=== PATIENT | male | born 1970 | race Caucasian/White ===

== ENCOUNTER 2019-12-20 09:18 | Emergency (ER) | payer MEDICAID, SELFPAY ==
[2019-12-20 09:30] VITALS: BP 124/90; PULSE 98; RESP 18; TEMP 36.8; O2SAT 98; BMI 27.6
[2019-12-20 09:37] VITALS: BP 124/90; PULSE 98; RESP 18; TEMP 36.8; O2SAT 98; BMI 27.6
[2019-12-20 10:17] LABS: Basophils % 0.4 % (0.1-2.0); Eosinophils % 0.6 % (0.1-12.0); Hematocrit 48.1 % (42.0-52.0); Hemoglobin 16.6 g/dL (14.1-18.0); Lymphocytes # 2.2 K/mm3 (0.7-4.5); Lymphocytes % 39.2 % (10-50); Mean Corpuscular HGB Conc 34.5 g/dL (31.8-35.4); Mean Corpuscular Volume 95.6 fl (80-94); Mean Platelet Volume 7.8 fl (7.4-10.4); Monocytes # 0.4 K/mm3 (0.1-1.0); Neutrophils # 2.9 K/mm3 (1.8-7.8); Neutrophils % 52.8 % (37.0-80.0); Platelet Count 226 K/mm3 (142-424); Red Blood Count 5.04 M/mm3 (4.60-6.20); Red Cell Distribution Width 14.7 % (11.5-17.5); White Blood Count 5.6 K/mm3 (4.8-10.8)
[2019-12-20 10:20] LABS: Chloride 101 mmol/L (98-107); Potassium 4.1 mmoL/L (3.5-5.1); Sodium 141 mmol/L (136-145)
[2019-12-20 10:22] LABS: Alanine Aminotransferase 25 U/L (12-78); Amylase 48 U/L (30-110); Aspartate Amino Transferase 41 U/L (17-59); Blood Urea Nitrogen 17 mg/dl (9-20); Creatinine Clearance Estimated 126 mL/min (50-200); Estimated Glomerular Filt Rate 80 ml/min (>60); GFR (African American) 97 ML/MIN (>60)
[2019-12-20 10:23] LABS: Albumin Level 4.3 g/dl (3.5-5.0); Albumin/Globulin Ratio 1.3 (1.1-1.8); Alkaline Phosphatase 102 U/L (38-126); Anion Gap 14.1 mEq/L (5-15); Bilirubin,Total 0.8 mg/dl (0.2-1.3); Calcium 8.7 mg/dl (8.4-10.2); Carbon Dioxide 30 mmol/L (22.0-30.0); Globulin 3.3 g/dL (1.3-3.2); Glucose 112 mg/dl (74-100); Lipase 158 U/L (23-300); Total Protein,Serum 7.6 g/dl (6.3-8.2)
--- NOTE | 2019-12-20 10:33 | HMH.EDUTC ---
[facility] [place] Impression: Gastroenteritis Disposition: Home, Self-Care Condition on Discharge: Good Instructions: DI for Viral Gastroenteritis -- Adult Additional Instructions: Drink plenty of fluids. Take tylenol or ibuprofen for pain or fever. Take the medications as directed. Follow up with your regular doctor. GO TO THE ER FOR ANY WORSENING SYMPTOMS Prescriptions: Ondansetron [Zofran 4mg ODT] 4 mg PO Q8HP PRN #20 tab.rapdis PRN Reason: Nausea Transmission Status: Received by [facility] Referrals: Jasmin Dominguez [Primary Care Provider] - Time of Disposition: 11:03 Medical Decision Making - Medical Records Medical records reviewed: No: I reviewed the patient's medical records. - Tommy Inquiry Pt receiving controlled substance: No Vital Signs: 12/20/19 09:30 12/20/19 09:37 12/20/19 11:51 Temperature 98.3 F 98.3 F 98.3 F Temperature Source Oral Oral Oral Pulse Rate 98 H Pulse Rate [Left Radial] 98 H 98 H Respiratory Rate 18 18 18 Blood Pressure 124/90 Blood Pressure [Left Arm] 124/90 124/90 Blood Pressure Mean [Left Arm] 101 101 Blood Pressure Source Automatic Cuff Blood Pressure Source [Left Arm] Automatic Cuff Automatic Cuff Blood Pressure Position Sitting Blood Pressure Position [Left Arm] Sitting Sitting 02 Sat by Pulse Oximetry 98 98 Oxygen Delivery Method Room Air Room Air Room Air - Lab Data Lab results reviewed: Yes: I reviewed the patient's lab results. Lab Results 12/20/19 10:03: WBC 5.6, RBC 5.04, Hgb 16.6, Hct 48.1, MCV 95.6 H, MCH 33.0 H, MCHC 34.5, RDW 14.7, Plt Count 226, MPV 7.8, Neut % (Auto) 52.8, Lymph % (Auto) 39.2, [place] % (Auto) 7.0, Eos % (Auto) 0.6, Baso % (Auto) 0.4, Neut # (Auto) 2.9, Lymph # (Auto) 2.2, [place] # (Auto) 0.4, Eos # (Auto) 0.0, Baso # (Auto) 0.0 12/20/19 10:03: Sodium 141, Potassium 4.1, Chloride 101, Carbon Dioxide 30, Anion Gap 14.1, BUN 17, Creatinine 1.00, Estimated Creat Clear 126, Estimated GFR 80, Est GFR ( Amer) 97, Glucose 112 H, Calcium 8.7, Total Bilirubin 0.8, AST 41, ALT 25, Alkaline Phosphatase 102, Total Protein 7.6, Albumin 4.3, Globulin 3.3 H, Albumin/Globulin Ratio 1.3, Amylase 48, Lipase 158 Result diagrams: 12/20/19 10:03 12/20/19 10:03 Orders (Tests/Meds): ED MEDICATIONS Discontinued Medications Generic Name Dose Route Start Last Admin Trade Name Freq PRN Reason Stop Dose Admin Sodium Chloride 1,000 mls @ 999 mls/hr 12/20/19 10:15 12/20/19 10:18 Sod Chlor 0.9% 1000ml Bag IV 12/20/19 11:15 999 mls/hr .Q1H1M ASHKAN Administration Ondansetron HCl 4 mg 12/20/19 10:20 12/20/19 10:23 Ondansetron 4mg/2ml Vial IV 12/20/19 10:21 4 mg ONCE ONE Administration Ondansetron HCl 4 mg 12/20/19 10:20 12/20/19 10:23 Ondansetron 4mg Odt SL 12/20/19 10:21 4 mg ONCE ONE Administration Medical Decision Narrative: 1 liter of ns was given iv. blood drawn, cbc and other labs essentially normal [facility] [place] - General Stated complaint: stomach pain Time Seen by Provider: 12/20/19 09:30 Mode of Arrival: Ambulatory Source of Information: Patient Limitations: No Limitations Description of Symptoms (Recalled from Triage Doc. by RN): Pt reports N/V/D that began monday night, pt reports he began using prednisolone eye drops monday prescribed by his eye dr. Pt reports he thinks this is what has caused his n/v/d. Pt reports his abd is sore from throwing up so much . HEENT Symptoms (Recalled from RN notes): No Resp Symptoms (Recalled from RN notes): No Skin Symptoms (Recalled from RN notes): No MS Symptoms (Recalled from RN notes): No Functional Status (Recalled from RN notes): wnl - History of Present Illness Provider Complaint: He states that for the past 4 days he has had n/v/d. He denies any abdominal pain. He denies fever/chills. - Related Data Previous Rx's Medication Instructions Recorded Ondansetron [Zofran 4mg ODT] 4 m
[2019-12-20 11:51] VITALS: BP 124/90; PULSE 98; RESP 18; TEMP 36.8; O2SAT 98
== END 2019-12-20 11:52 | disposition home or self-care (01) ==
PROVIDERS: Emergency Provider Nurse Practitioner Family; PCP Physician Assistant
DX: K52.9 Noninfective gastroenteritis and colitis, unspecified (principal)
CPT/HCPCS: 80053; 82150; 83690; 85025; 96365; 96375; 99201; J2405

== ENCOUNTER 2020-04-25 15:20 | Emergency (ER) | payer MEDICAID, SELFPAY ==
[2020-04-25 15:21] VITALS: BP 148/104; PULSE 99; RESP 18; TEMP 37.1; O2SAT 98; BMI 30.8
--- NOTE | 2020-04-25 15:28 | HMH.EDGENADL ---
ED Disposition Clinical Impression: Concussion Qualifiers: Encounter type: initial encounter Loss of consciousness presence/duration: with LOC of 30 min or less Qualified Code(s): S06.0X1A - Concussion with loss of consciousness of 30 minutes or less, initial encounter Scalp laceration Qualifiers: Encounter type: initial encounter Qualified Code(s): S01.01XA - Laceration without foreign body of scalp, initial encounter Facial abrasion Qualifiers: Encounter type: initial encounter Qualified Code(s): S00.81XA - Abrasion of other part of head, initial encounter Disposition: Home, Self-Care Condition on Discharge: Good Instructions: DI for Concussion, DI for Laceration Repair -- [place] Additional Instructions: Tylenol or ibuprofen for pain. Additional instructions for SCALP LACERATION: Clean the wound daily with soap and water. You may shower and shampoo your hair. Avoid submerging the wound. No swimming.. Apply a thin film of antibiotic ointment such as neosporin, polysporin, or triple antibiotic daily after showering. Be careful when combing or brushing hair so that you so not snag the verenice with a comb or brush. See your primary care physician or return to the [facility] in 7 days for staple removal. The [facility] is open 9AM to 9 PM, 7 days a week. Return if any signs of infection including increasing pain, pus drainage, swelling, redness, red streaks, or fever. Additional instructions for HEAD INJURY: See your physician as soon as possible for further evaluation. Return immediately if severe headache, vomiting, problems with vision or speech, numbness or weakness of the extremities, or severe neck pain. Referrals: Jung Welch [Primary Care Provider] - - Critical Care Critical Care Time: No Attestation: On 04/25/20, the high probability of a clinically significant, sudden or life threatening deterioration of the following system(s) required my full and direct attention, intervention and personal management. The time I documented below is in addition to time spent performing reported procedures but includes the following listed in this critical care notation. Medical Decision Making - Tommy Inquiry Pt receiving controlled substance: No Vital Signs: 04/25/20 15:21 Temperature 98.8 F Temperature Source Oral Pulse Rate [Right] 99 H Respiratory Rate 18 Blood Pressure [Right Arm] 148/104 H Blood Pressure Mean [Right Arm] 118 02 Sat by Pulse Oximetry 98 Oxygen Delivery Method Room Air Orders (Tests/Meds): ED MEDICATIONS Discontinued Medications Generic Name Dose Route Start Last Admin Trade Name Alexq PRN Reason Stop Dose Admin Lidocaine HCl 20 ml 04/25/20 15:32 04/25/20 15:39 Lidocaine 2% 20ml Vial IJ 04/25/20 15:33 1 dose ONCE ONE Administration ORDERS Category Date Time Status CT cervical spine wo con Stat Cat Scan 04/25/20 15:[address] head/brain wo con Stat Cat Scan 04/25/20 15:36 Taken - CT Data CT Scan: Head, C-Spine Time Received: 16:07 ([facility] fax) ED CT Reviewed: Yes: I have viewed the radiologist's interpretation Findings Narrative: Head: Negative Cervical spine: No evidence of acute fracture or significant subluxation General Adult HPI - General Stated complaint: a/o board hit in head Time Seen by Provider: 04/25/20 15:28 - History of Present Illness HPI narrative: A 1 x 6 board fell and hit him on the head and left side of his face. He believes it knocked him unconscious. He does have a headache. He has some neck soreness but says his neck is always sore. Denies visual disturbance, numbness or weakness, or vomiting. Last tetanus immunization 3 to 4 years ago. - Related Data Previous Rx's Medication Instructions Recorded Ondansetron [Zofran 4mg ODT] 4 mg PO Q8HP PRN #20 tab.rapdis 12/20/19 Allergies Allergy/AdvReac Type Severity Reaction Status Date / Time isopropyl alcohol Allergy
--- NOTE | 2020-04-25 15:36 | CT_ITS ---
PROCEDURE: CT HEAD/BRAIN WO CON CLINICAL INDICATION: injury Head injury with headache/pain, contusion, abrasion or hematoma with questionable loss of consciousness COMPARISON: No exams were available for comparison TECHNIQUE: Axial images obtained. All CT scans at the facility use one or more dose reduction, viz: automated exposure control, ma/kV adjustment per patient size (including targeted exams where dose is matched to indication, i.e. head), or iterative reconstruction technique. FINDINGS: No midline shift, mass effect, intracranial hemorrhage, hydrocephalus, or extra-axial fluid collection is evident. The calvarium has an unremarkable appearance. Soft tissue swelling in the left parietal region. A surgical clip is present at this area. No underlying fracture. No sinus air-fluid level. IMPRESSION: No acute intracranial findings. Left frontal parietal scalp swelling consistent with contusion with a skin clip present Dictated by: Jeremy Pond MD 04/26/2020 06:04 Jeremy Pond MD in [place] 04/26/2020 06:04
--- NOTE | 2020-04-25 15:36 | CT_ITS ---
PROCEDURE: CT CERVICAL SPINE WO CON CLINICAL INDICATION: injury Neck injury with pain, contusion/abrasion or hematoma, cervical sprain/strain the COMPARISON: No exams were available for comparison TECHNIQUE: Axial images obtained with sagittal and coronal reformats. All CT scans at the facility use one or more dose reduction, viz: automated exposure control, ma/kV adjustment per patient size (including targeted exams where dose is matched to indication, i.e. head), or iterative reconstruction technique. Axial spiral CT scanning performed of the cervical spine beginning at the base of the skull and continuing to the upper T-spine. 3-D multiplanar reconstruction with 3-D manipulation of volumetric data set in image rendering was completed by the radiologist and/or technologist with the supervision of the radiologist on independent workstation. FINDINGS: Normal alignment. No acute fracture or dislocation evident. Prior anterior cervical disc fusion at C5-C6 with good alignment. Degenerative disc disease is present at that level with some minimal endplate hypertrophic change on the left Small left paracentral disc osteophyte complex at C3-C4 with mild left-sided lateral recess narrowing. Mild left lateral recess and foraminal narrowing at C5-C6 from uncovertebral hypertrophy. IMPRESSION: 1. No acute fracture. 2. Postsurgical changes with cervical spondylosis as detailed above. Dictated by: Jeremy Pond MD 04/26/2020 06:08 Jeremy Pond MD in [place] 04/26/2020 06:08
[2020-04-25 16:23] VITALS: BP 123/84; PULSE 94; RESP 20; TEMP 37.1; O2SAT 96
== END 2020-04-25 16:24 | disposition home or self-care (01) ==
PROVIDERS: Emergency Provider Emergency Medicine; PCP Family Medicine
DX: S01.01XA Laceration without foreign body of scalp, initial encounter (principal); S06.0X1A Concussion with loss of consciousness of 30 minutes or less, initial encounter; W22.8XXA Striking against or struck by other objects, initial encounter; Y92.9 Unspecified place or not applicable
CPT/HCPCS: 12001; 70450; 72125; 99282

== ENCOUNTER 2020-05-03 15:30 | Emergency (ER) | payer MEDICAID, SELFPAY ==
[2020-05-03 15:55] VITALS: BMI 29.2
[2020-05-03 15:57] VITALS: BP 166/106; PULSE 86; RESP 14; TEMP 36.6
== END 2020-05-03 15:58 | disposition home or self-care (01) ==
LOC: UTC 15:36
PROVIDERS: Emergency Provider Nurse Practitioner Family; PCP Family Medicine
DX: S01.01XD Laceration without foreign body of scalp, subsequent encounter (principal)